=== PATIENT | female | born 1965 | race Caucasian/White ===

== ENCOUNTER 2019-08-20 14:04 | Emergency (ER) | payer OTHER ==
[~2019-08-20] VITALS: Ht 157.5 cm; Wt 107.0 kg
[2019-08-20] MEDS ORDERED: CIPROFLOXACIN 500 MG TAB ONE (15:08)
[2019-08-20] MEDS: CIPROFLOXACIN 500 MG TAB PO SCH (15:24)
== END 2019-08-20 18:01 | disposition home or self-care (01) ==
LOC: FSED 14:04
DX: Z20.811 Contact with and (suspected) exposure to meningococcus (principal); I10 Essential (primary) hypertension; F17.210 Nicotine dependence, cigarettes, uncomplicated
CPT/HCPCS: 99282

== ENCOUNTER 2020-08-21 10:41 | Emergency (ER) | payer BC ==
[~2020-08-21] VITALS: Ht 157.5 cm; Wt 107.0 kg
[2020-08-21] MEDS ORDERED: KETOROLAC TROMETHAMINE 30 MG/ML VIAL IV STA (11:22)
[2020-08-21 12:10] LABS: BASOPHILS # (AUTO) 0.1 (0.0-0.1); BASOPHILS % 0.7 % (0.0-1.0); EOSINOPHILS # (AUTO) 0.3 (0.0-0.4); EOSINOPHILS % 2.9 % (0.0-6.0); HEMATOCRIT 43.7 % (34.2-44.1); HEMOGLOBIN 14.5 g/dL (12.0-16.0); LYMPHOCYTES # (AUTO) 2.6 (1.0-3.2); LYMPHOCYTES % 21.4 % (18.0-39.1); MEAN CORPUSCULAR HEMOGLOBIN 32.3 pg (28-32); MEAN CORPUSCULAR HGB CONC 33.2 g/dL (31-35); MEAN CORPUSCULAR VOLUME 97.3 fL (81-99); MONOCYTES # (AUTO) 0.8 (0.2-0.8); MONOCYTES % 6.6 % (4.4-11.3); NEUTROPHILS # (AUTO) 8.1 (2.1-6.9); NEUTROPHILS % 68.1 % (38.7-80.0); PLATELET COUNT 273 x10e3/uL (140-360); RED BLOOD COUNT 4.49 x10e6/uL (3.6-5.1); RED CELL DISTRIBUTION WIDTH 12.8 % (11.7-14.4)
[2020-08-21] MEDS ORDERED: DEXAMETHASONE SOD PHOS 10 MG/1 ML VIAL IV ONE (12:15)
[2020-08-21 12:21] LABS: INR 0.92; PROTHROMBIN TIME 12.8 seconds (11.9-14.5)
[2020-08-21 12:22] LABS: PARTIAL THROMBOPLASTIN TIME 28.9 seconds (23.8-35.5)
[2020-08-21 12:28] LABS: ALANINE AMINOTRANSFERASE 20 IU/L (0-55); ALBUMIN 4.5 g/dL (3.5-5.0); ALBUMIN/GLOBULIN RATIO 1.7 (0.8-2.0); ALKALINE PHOSPHATASE 69 IU/L (40-150); ANION GAP 13.2 mmol/L (8-16); BLOOD UREA NITROGEN 9 mg/dL (7-26); BUN/CREATININE RATIO 11 (6-25); CALCIUM 8.9 mg/dL (8.4-10.2); CARBON DIOXIDE 25 mmol/L (22-29); CHLORIDE 107 mmol/L (98-107); CREATININE, SERUM 0.79 mg/dL (0.57-1.11); EST GLOMERULAR FILTRATION RATE > 60 ML/MIN (60-); GLUCOSE 95 mg/dL (74-118); POTASSIUM 4.2 mmol/L (3.5-5.1); SODIUM 141 mmol/L (136-145)
--- NOTE | 2020-08-21 12:37 | Diagnostic Imaging Report ---
Radiographs of the right knee - 3 views HISTORY: Pain COMPARISON: None available. FINDINGS: Bones: No acute displaced fracture. Osseous alignment is within normal limits. 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 No osseous erosion. Soft tissues: The soft tissues appear unremarkable. 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 No osseous erosion. Signed by: Dr. Jose Armando Li M.D. on 08/21/2020 12:34 PM
[2020-08-21] MEDS ORDERED: DEXAMETHASONE SOD PHOS INJ 4 MG/ML VIAL IV ONE (12:45)
--- NOTE | 2020-08-21 13:38 | Emergency Department Note ---
History of Present Illnes History of Present Illness Chief Complaint: General Medicine Complaints History of Present Illness This is a 54 year old female PATIENT IN FROM HOME WITH COMPLAINTS OF RIGHT KNEE PAIN SINCE MONDAY; PATIENT WITH PAIN TO THE INSIDE OF THE RIGHT KNEE; RATED 4/10. STATES PAIN IS WORSE WITH PRESSURE. PATIENT AMBULATORY WITH SLOW AND STEADY GAIT; APPEARS UNCOMFORTABLE. Historian: Patient Arrival Mode: [employer] Employee Required: No Onset (how long ago): day(s) (2) Location: R KNEE Quality: PAIN Radiation: Reports non-radiation Severity: severe Onset quality: sudden Timing of current episode: constant Progression: unchanged Chronicity: new Context: Denies recent illness, Denies trauma/injury Relieving factors: none Exacerbating factors: none Associated symptoms: Reports denies other symptoms Past Medical/Family History Physician Review I have reviewed the patient's past medical and family history. Any updates have been documented here. Past Medical History Recent Fever: No Clinical Suspicion of Infectio: No New/Unexplained Change in Ment: No Past Medical History: Hypertension, Hyperlipedemia Past Surgical History: Tubal Ligation, Social History Smoking Cessation: Never Smoker Counseling Performed: No Alcohol Use: None Any Illegal Drug Use: No TB Exposure/Symptoms: No Physically hurt or threatened: No Family History Family history of heart diseas: No Other Last Tetanus: utd Any Pre-Existing Lines (PICC,: No Review of Systems Review of Systems Constitutional: Reports no symptoms EENTM: Reports no symptoms Cardiovascular: Reports no symptoms Respiratory: Reports no symptoms Gastrointestinal: Reports no symptoms Genitourinary: Reports no symptoms Musculoskeletal: Reports as per HPI Integumentary: Reports no symptoms Neurological: Reports no symptoms Psychological: Reports no symptoms Endocrine: Reports no symptoms Hematological/Lymphatic: Reports no symptoms Physical Exam Related Data Allergies: Coded Allergies: No Known Allergies (Unverified , 08/20/19) Triage Vital Signs Vital Signs Date Time Temp Pulse Resp B/P (MAP) Pulse Ox O2 Delivery O2 Flow Rate FiO2 08/21/20 11:19 97.4 73 20 117/81 100 Room Air Vital signs reviewed: Yes Physical Exam CONSTITUTIONAL Constitutional: Present well-developed, Present well-nourished, Present obese HENT HENT: Present normocephalic, Present atraumatic, Present oropharynx clear/moist, Present nose normal HENT L/R: Present left ext ear normal, Present right ext ear normal EYES Eyes: Reports PERRL, Reports conjunctivae normal NECK Neck: Present ROM normal PULMONARY Pulmonary: Present effort normal, Present breath sounds normal CARDIOVASCULAR Cardiovascular: Present regular rhythm, Present heart sounds normal, Present capillary refill normal, Present normal rate GASTROINTESTINAL Abdominal: Present soft, Present nontender, Present bowel sounds normal GENITOURINARY Genitourinary: Present exam deferred SKIN Skin: Present warm, Present dry MUSCULOSKELETAL Musculoskeletal: Present ROM normal, Present tenderness (MEDIAL RIGHT KNEE) NEUROLOGICAL Neurological: Present alert, Present oriented x 3, Present no gross motor or sensory deficits PSYCHOLOGICAL Psychological: Present mood/affect normal, Present judgement normal Results Laboratory Result Diagram: 08/21/20 1152 08/21/20 1152 Laboratory Laboratory Tests Test 08/21/20 11:52 White Blood Count 11.91 x10e3/uL (4.8-10.8) Red Blood Count 4.49 x10e6/uL (3.6-5.1) Hemoglobin 14.5 g/dL (12.0-16.0) Hematocrit 43.7 % (34.2-44.1) Mean Corpuscular Volume 97.3 fL (81-99) Mean Corpuscular Hemoglobin 32.3 pg (28-32) Mean Corpuscular Hemoglobin Concent 33.2 g/dL (31-35) Red Cell Distribution Width 12.8 % (11.7-14.4) Platelet Count 273 x10e3/uL (140-360) Neutrophils (%) (Auto) 68.1 % (38.7-80.0) Lymphocytes (%) (Auto) 21.4 % (18.0-39.1) Monocytes (%) (Auto) 6.6 % (4.4-11.3) Eosinophils (%) (Auto) 2.9 % (0.0-6.0) Basophils (%) (Auto) 0.7 % (0.0-1.0) Neutrophils # (Auto) 8.1 (2.1-6.9) Lymphocytes # (Auto) 2.6 (1.0-3.2) Monocytes # (Auto) 0.8 (0.2-0.8) Eosinophils # (Auto) 0.3 (0.0-0.4) Basophils # (Auto) 0.1 (0.0-0.1) Absolute Immature Granulocyte (auto 0.04 x10e3/uL (0-0.1) Prothrombin Time 12.8 seconds (11.9-14.5) Prothromb Time International Ratio 0.92 Activated Partial Thromboplast Time 28.9 seconds (23.8-35.5) Sodium Level 141 mmol/L (136-145) Potassium Level 4.2 mmol/L (3.5-5.1) Chloride Level 107 mmol/L (98-107) Carbon Dioxide Level 25 mmol/L (22-29) Anion Gap 13.2 mmol/L (8-16) Blood Urea Nitrogen 9 mg/dL (7-26) Creatinine 0.79 mg/dL (0.57-1.11) Estimat Glomerular Filtration Rate > 60 ML/MIN (60-) BUN/Creatinine Ratio 11 (6-25) Glucose Level 95 mg/dL (74-118) Calcium Level 8.9 mg/dL (8.4-10.2) Total Bilirubin 0.3 mg/dL (0.2-1.2) Aspartate Amino Transf (AST/SGOT) 15 IU/L (5-34) Alanine Aminotransferase (ALT/SGPT) 20 IU/L (0-55) Alkaline Phosphatase 69 IU/L (40-150) Total Protein 7.2 g/dL (6.5-8.1) Albumin 4.5 g/dL (3.5-5.0) Globulin 2.7 g/dL (2.3-3.5) Albumin/Globulin Ratio 1.7 (0.8-2.0) Imaging Imaging results reviewed: Yes Imaging Comments NEG VENOUS DOPPLER/NO DVT Assessment & Plan Medical Decision Making MDM KNEE PAIN - CHECK XRAY, VENOUS DOPPLER - EVAL FX, DVT Reassessment Reassessment TORADOL, TYL #3, KNEE BRACE, F/U PCP (GIVE # FOR DR QUINTERO) AND ORTHO DR Mariangel YEBOAH Assessment & Plan Final Impression: (1) Knee internal derangement Depart Disposition: HOME, SELF-CARE Last Vital Signs Date Time Temp Pulse Resp B/P (MAP) Pulse Ox O2 Delivery O2 Flow Rate FiO2 08/21/20 11:19 97.4 73 20 117/81 100 Room Air Medications in the ED Ketorolac Tromethamine 30 mg ONCE STAT IV Last administered on 08/21/20at 12:23; Admin Dose 30 MG; Start 08/21/20 at 11:22; Stop 08/21/20 at 11:26; Status DC Dexamethasone Sodium Phosphate 6 mg ONCE ONCE IV ; Start 08/21/20 at 12:15; Stop 08/21/20 at 12:16; Status DC Dexamethasone Sodium Phosphate 6 mg ONCE ONCE IV Last administered on 08/21/20at 12:41; Admin Dose 6 MG; Start 08/21/20 at 12:45; Stop 08/21/20 at 12:46; Status DC JOSÉ ABREU MD Aug 21, 2020 13:38
[2020-08-21 13:41] VITALS: BP 135/81
--- OUTSIDE RECORDS SUMMARY | 2020-08-23 16:11 | XMS REPORT | Continuity of Care Document ---
Author Author [facility] t Organization [facility] Address [address] [place] [address] Phone Unavailable Care Team Providers Care Tire Mold Tester Name Role Phone NO, PCP PCP Unavailable Shiv ABREU Attphys Unavailable Payers Payer Name Policy Type Policy Number Effective Date Expiration Date [facility] Ppo [id number] 2019 00:00:00 [facility] Problems Condition Name Condition Details Condition Category Status Onset Date Resolution Date Last Treatment Date Treating Clinician Comments Source Internal derangement of knee Problem Active [facility] HTN (hypertension), benign HTN (hypertension), benign Active Diagnosis 04/30/2020 [facility] Cardiovascular Diagnosis Active 2020-04-30 02:45:14 Say Concepcion Obesity (BMI 30-39.9) Obes ity (BMI 30-39.9) Active Diagnosis 04/30/2020 [facility] Cardiovascular Diagnosis Active 2020-04-30 02:45:14 Say Concepcion Dyslipidemia Dysl ipidemia Active Diagnosis 04/30/2020 [facility] Cardiovascular Diagnosis Active 2020-04-30 02:45:14 Say Concepcion Family history of premature CAD Family history of premature CAD Active Diagnosis 04/23/2020 [facility] Cardiovascular Diagnosis Active 2020-04-23 02:45:56 Say Concepcion KO (dyspnea on exertion) KO (dyspnea on exertion) Active Diagnosis 04/30/2020 [facility] Cardiovascular Diagnosis Active 2020-04-30 02:45:14 Say Concepcion 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 Active Diagnosis 04/23/2020 [facility] Cardiovascular Diagnosis Active 2020-04-23 02:45:56 [facility] Carotid stenosis, left Luo tid stenosis, left Active Diagnosis 04/30/2020 [facility] Cardiovascular Diagnosis Active 2020-04-30 02:45:14 [facility] Other symptoms involving cardiovascular system Other symptoms involving cardiovascular system Active Diagnosis 04/23/2020 [facility] Cardiovascular Diagnosis Active 2020-04-23 02:45:56 Ar morial [facility] Allergies, Adverse Reactions, Alerts Allergy Name Allergy Type Status Severity Reaction(s) Onset Date Inacti ve Date Treating Clinician Comments Source Geovanna Austin Active Info Not Available 2020-04-28 00:00:00 [facility] Social History Social Habit Start Date Stop Date Quantity Comments Source Sex Assigned At 1965 00:00:00 1965 00:00:00 Female [facility] Medications Ordered Medication Name Filled Medication Name Start Date Stop Da te Current Medication? Ordering Clinician Indication Dosage Frequency Signature (SIG) Comments Components Source Lisinopril 2020-04-30 02:45:14 Yes Mohamed Ramo 1 tablet [facility] Phentermine HCl 2020-04-30 02:45:14 Yes Mohamed Ramo 1 capsule [facility] Aspirin 81 2020-04-28 00:00:00 Yes Mohamed Ramo 1 tablet [facility] Pravastatin Sodium 2019-07-02 00:00:00 Yes Mohamed Ramo 1 tablet [facility] Lisinopril 2019-07-02 00:00:00 Yes Mohamed Ramo 1 tablet [facility] Phentermine HCl 2018-12-21 00:00:00 Yes Lorenamed Ramo 1 capsule [facility] Vital Signs Vital Name Observation Time Observation Value Comments Source Weight 2020-08-21 11:19:00 236 [lb_av] [facility] BMI (Body Mass Index) 2020-08-21 11:19:00 43.2 kg/m2 [facility] Weight 2019-10-15 18:45:00 [facility] Height 2019-10-15 18:45:00 [facility] Heart Rate 2019-10-15 18:45:00 [facility] Diastolic (mm Hg) 2019-10-15 18:45:00 [facility] Systolic (mm Hg) 2019-10-15 18:45:00 [facility] Weight 2018-12-21 16:15:00 [facility] Height 2018-12-21 16:15:00 [facility] Heart Rate 2018-12-21 16:15:00 [facility] Diastolic (mm Hg) 2018-12-21 16:15:00 [facility] Systolic (mm Hg) 2018-12-21 16:15:00 [facility] Weight 2018-12-04 21:00:00 [facility] Height 2018-12-04 21:00:00 [facility] Heart Rate 2018-12-04 21:00:00 [facility] Diastolic (mm Hg) 2018-12-04 21:00:00 [facility] Systolic (mm Hg) 2018-12-04 21:00:00 [facility] Procedures This patient has no known procedures. Plan of Care Planned Activity Planned Date Details Comments Source Instructions Strains [facility] Instructions Sprains- Knee [facility] Encounters Start Date/Time End Date/Time [facility] Source 2020-04-28 09:45:00 2020-04-28 09:45:00 [place] [id number] [facility] 2020-04-16 11:00:00 2020-04-16 11:00:00 [place] [id number] [facility] 2020-04-16 11:00:00 2020-04-16 11:00:00 [place] [id number] [facility] 2019-11-04 13:17:00 2019-11-04 13:17:00 [place] [id number] [facility] 2019-10-15 13:45:00 2019-10-15 13:45:00 Out[place] [id number] [facility] 2019-10-02 10:00:00 2019-10-02 10:00:00 Outpatient [place] [id number] [facility] 2019-08-20 14:04:00 2019-08-20 14:04:00 Registered Emergency Room [facility] [id number] [facility] 2019-06-20 10:00:00 2019-06-20 10:00:00 Outpatient [place] [id number] [employer] 2018-12-21 10:15:00 2018-12-21 10:15:00 [place] [id number] [facility] 2018-12-12 09:30:00 2018-12-12 09:30:00 [place] [facility] [place] [id number] [facility] 2018-12-12 09:00:00 2018-12-12 09:00:00 Outpatient [facility] [place] [id number] [facility] 2018-12-12 09:00:00 2018-12-12 09:00:00 Outpatient [facility] [place] [id number] [facility] 2018-12-12 08:30:00 2018-12-12 08:30:00 Outpatient [facility] [place] [id number] [facility] 2018-12-04 15:00:00 2018-12-04 15:00:00 [place] [id number] [employer] Results Test Description Test Time Test Comments Results Result Comments Source KNEE RIGHT THREE VIEWS 2020-08-21 12:33:00 [facility] [address] [place] [address] Patient Name: TEE THEODORE MR #: [id number] : 1965 Age/Sex: 54/F Req #: [id number] Adm Physician: Ordered by: JOSÉ ABREU MD Report #: [id number] Location: ER Room/Bed: Procedure: [id number] DX/KNEE RIGHT THREE VIEWS Exam Date: 08/21/20 Exam Time: 1222 REPORT STATUS: Signed Radiographs of the right knee - 3 views HISTORY: Pain COMPARISON: None available. FINDINGS: Bones: No acute displaced fracture. Osseous alignment is within normal limits. 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 No osseous erosion. Soft tissues: The soft tissues appear unremarkable. 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 No osseous erosion. Signed by: Dr. Jose Armando Li M.D. on 08/21/2020 12:34 PM Dictated By: JOSE ARMANDO LI MD, MD 1234 Transcribed By: DEREK on 08/21/20 1234 COPY TO: JOSÉ ABREU MD Blood leukocytes automated count (number/volume) 2020-08-21 11:52:00 Test Item White Blood Count (test code = 6690-2) 11.91 4.8-10.8 [facility] count (number/volume)2020-08-21 11:52:00* Test Item Value Reference Range Interpretation Comments Red Blood Count (test code = 789-8) 4.49 3.6-5.1 [facility] hemoglobin measurement (moles/volume)2020-08-21 11:52:00* Test Item Value Reference Range Interpretation Comments Hemoglobin (test code = 84776-8) 14.5 12.0-16.0 [facility] CenterAutomated blood hematocrit (volume fraction)2020-08-21 11:52:00* Test Item Value Reference Range Interpretation Comments Hematocrit (test code = 4544-3) 43.7 34.2-44.1 [facility] CenterAutomated erythrocyte mean corpuscular dtyism9179-00-66 11:52:00* Test Item Value Reference Range Interpretation Comments Mean Corpuscular Volume (test code = 787-2) 97.3 81-99 [facility] CenterAutomated erythrocyte mean corpuscular hemoglobin (mass per erythrocyte)2020-08-21 11:52:00* Test Item Value Reference Range Interpretation Comments Mean Corpuscular Hemoglobin (test code = 785-6) 32.3 28-32 [facility] CenterAutomated erythrocyte mean corpuscular hemoglobin concentration measurement (mass/volume)2020-08-21 11:52:00* Test Item Value Reference Range Interpretation Comments Mean Corpuscular Hemoglobin Concent (test code = 786-4) 33.2 31-35 [facility] CenterRDW WxkGb-Ddr0243-77-25 11:52:00* Test Item Value Reference Range Interpretation Comments Red Cell Distribution Width (test code = 76733-6) 12.8 11.7 -14.4 [facility] CenterAutomated blood platelet count (count/volume)2020-08-21 11:52:00* Test Item Value Reference Range Interpretation Comments Platelet Count (test code = 777-3) 273 140-360 [facility] CenterAutunc health johnstoned blood segmented neutrophil count as percentage of total aegjxmtmly8978-49-76 11:52:00* Test Item Value Reference Range Interpretation Comments Neutrophils (%) (Auto) (test code = 16144-0) 68.1 38.7-80.0 [facility] CenterAutomated blood lymphocyte count as percentage ot total dtvbmqalqq6041-37-04 11:52:00* Test Item Value Reference Range Interpretation Comments Lymphocytes (%) (Auto) (test code = 736-9) 21.4 18.0-39.1 [facility] CenterAutunc health johnstoned blood monocyte count as percentage of total isyypzfjzp6678-77-60 11:52:00* Test Item Value Reference Range Interpretation Comments Monocytes (%) (Auto) (test code = 5905-5) 6.6 4.4-11.3 [facility] CenterAutomated blood eosinophil count as percentage of total loewiuxfea5935-07-28 11:52:00* Test Item Value Reference Range Interpretation Comments Eosinophils (%) (Auto) (test code = 713-8) 2.9 0.0-6.0 [facility] CenterAutomated blood basophil count as percentage of total jjccmyckhm3593-28-55 11:52:00* Test Item Value Reference Range Interpretation Comments Basophils (%) (Auto) (test code = 706-2) 0.7 0.0-1.0 [facility] CenterFluoroscopic procedure less than one hour svlgbfdw8068-27-95 11:52:00* Test Item Value Reference Range Interpretation Comments IM GRANULOCYTES % (test code = IM GRANULOCYTES %) 0.3 0.0- 1.0 [facility] neutrophil count 2020-08-21 11:52:00* Test Item Value Reference Range Interpretation Comments Neutrophils # (Auto) (test code = 751-8) 8.1 2.1-6.9 [facility] CenterBlood lymphocytes count (number/volume) 2020-08-21 11:52:00* Test Item Value Reference Range Interpretation Comments Lymphocytes # (Auto) (test code = 01434-8) 2.6 1.0-3.2 [facility] monocytes automated count (number/volume)2020-08-21 11:52:00* Test Item Value Reference Range Interpretation Comments Monocytes # (Auto) (test code = 742-7) 0.8 0.2-0.8 [facility] CenterAutomated blood eosinophil count 2020-08-21 11:52:00* Test Item Value Reference Range Interpretation Comments Eosinophils # (Auto) (test code = 711-2) 0.3 0.0-0.4 [facility] CenterAutomated blood basophil count (count/volume)2020-08-21 11:52:00* Test Item Value Reference Range Interpretation Comments Basophils # (Auto) (test code = 704-7) 0.1 0.0-0.1 [facility] CenterFluoroscopic procedure less than one hour wpwfowoe1611-42-36 11:52:00* Test Item Value Reference Range Interpretation Comments Absolute Immature Granulocyte (auto (teodoro t code = Absolute Immature Granulocyte (auto) 0.04 0-0.1 [facility] CenterProthrombin time (PT) in platelet poor plasma by coagulation embug7475-61-70 11:52:00* Test Item Value Reference Range Interpretation Comments Prothrombin Time (test code = 5902-2) 12.8 11.9-14.5 [facility] CenterINR in Platelet poor plasma by Coagulation cuquj5548-59-42 11:52:00* Test Item Value Reference Range Interpretation Comments Prothromb Time International Ratio (test code = 6301-6) 0.92 Oral Anticoagulant Therapy INR Values:1. Low Intensity Therapy 1.5 - 2.02 . Moderate Intensity Therapy 2.0 - 3.03. High Intensity Therapy(1) 2.5 - 3. 54. High Intensity Therapy(2) 3.0 - 4.05. Panic Value INR > 5.0 [facility] CenterActivated partial thromboplastin time (aPTT) in platelet poor plasma by coagulation lvwux2890-75-84 11:52:00* Test Item Value Reference Range Interpretation Comments Activated Partial Thromboplast Time (test code = 56585-1) 28.9 23.8-35.5 [facility] plasma sodium measurement (moles/volume)2020-08-21 11:52:00* Test Item Value Reference Range Interpretation Comments Sodium Level (test code = 2951-2) 141 136-145 [facility]erum or plasma potassium measurement (moles/volume)2020-08-21 11:52:00* Test Item Value Reference Range Interpretation Comments Potassium Level (test code = 2823-3) 4.2 3.5-5.1 [facility]um or plasma chloride measurement (moles/volume)2020-08-21 11:52:00* Test Item Value Reference Range Interpretation Comments Chloride Level (test code = 2075-0) 107 98-107 [facility] Texaserum or plasma carbon dioxide, total measurement (moles/volume)2020-08-21 11:52:00* Test Item Value Reference Range Interpretation Comments Carbon Dioxide Level (test code = 2028-9) 25 22-29 [facility] Texaserum or plasma anion ftp7364-90-95 11:52:00* Test Item Value Reference Range Interpretation Comments Anion Gap (test code = 55388-6) 13.2 8-16 [facility]um or plasma urea nitrogen measurement (mass/volume)2020-08-21 11:52:00* Test Item Value Reference Range Interpretation Comments Blood Urea Nitrogen (test code = 3094-0) 9 7- [facility]erum or plasma creatinine measurement (mass/volume)2020-08-21 11:52:00* Test Item Value Reference Range Interpretation Comments Creatinine (test code = 2160-0) 0.79 0.57-1.11 [facility]erum or plasma urea nitrogen/creatinine mass bpvhq3105-84-93 11:52:00* Test Item Value Reference Range Interpretation Comments BUN/Creatinine Ratio (test code = 3097-3) 11 - [facility] CenterEstimated glomerular filtration rate (GFR) gzdreqcjqhegq3308-75-20 11:52:00* Test Item Value Reference Range Interpretation Comments Estimat Glomerular Filtration Rate (test code = 207190304) > 60 >60 Ranges were taken from the National Kidney Disease Education Program and the [facility] Kid[facility] Foundation literature.Reference ranges:60 or greater: Cocacu13-25 ( for 3 consecutive months): Chronic kidney disease 15 or less: Kidney failureMethodist Mansfield Medical CenterGlucose xfcplagqmnu9194-05-63 11:52:00* Test Item Value Reference Range Interpretation Comments Glucose Level (test code = HTK3048) 95 74-118 [facility]erum or plasma calcium measurement (mass/volume)2020-08-21 11:52:00* Test Item Value Reference Range Interpretation Comments Calcium Level (test code = 57828-2) 8.9 8.4-10.2 [facility]erum or plasma total bilirubin measurement (mass/volume)2020-08-21 11:52:00* Test Item Value Reference Range Interpretation Comments Total Bilirubin (test code = 1975-2) 0.3 0.2-1.2 [facility] CenterFluoroscopic procedure less than one hour mavgpwpz1347-44-99 11:52:00* Test Item Value Reference Range Interpretation Comments Aspartate Amino Transf (AST/SGOT) (test code = Aspartate Amino Transf (AST/SGOT)) 15 5-34 [facility] Texaserum or plasma alanine aminotransferase measurement (enzymatic activity/volume)2020-08-21 11:52:00* Test Item Value Reference Range Interpretation Comments Alanine Aminotransferase (ALT/SGPT) (test code = 1742-6) 20 0-55 [facility]erum or plasma protein measurement (mass/volume)2020-08-21 11:52:00* Test Item Value Reference Range Interpretation Comments Total Protein (test code = 2885-2) 7.2 6.5-8.1 [facility] Texaserum or plasma albumin measurement (mass/volume)2020-08-21 11:52:00* Test Item Value Reference Range Interpretation Comments Albumin (test code = 1751-7) 4.5 3.5-5.0 [facility] CenterPlasma globulin measurement (mass/volume) 2020-08-21 11:52:00* Test Item Value Reference Range Interpretation Comments Globulin (test code = 54418-0) 2.7 2.3-3.5 [facility]um or plasma albumin/globulin mass [id number] 11:52:00* Test Item Value Reference Range Interpretation Comments Albumin/Globulin Ratio (test code = 1759-0) 1.7 0.8-2.0 [facility]erum or plasma alkaline phosphatase measurement (enzymatic activity/volume)2020-08-21 11:52:00* Test Item Value Reference Range Interpretation Comments Alkaline Phosphatase (test code = 6768-6) 69 40-150 [facility]
--- OUTSIDE RECORDS SUMMARY | 2020-08-23 16:11 | XMS REPORT | Continuity of Care Document ---
Author Author [employer] Luis AdEspresso Address Unknown Phone Unavailable Care Team Providers Care Maritime Officer Name Role Phone Palmer Hargreaves Information Exchange Unavailable Un available Problems Problem Status Onset Date Classification Date Reported Comments Source HTN (hypertension), benign Act eve Diagnosis 0 04/30/2020 [facility] Obesity (BMI 30-39.9) Active Diagnosis 04/30/2020 [facility] Dyslipidemia Active Diagnosis 04/30/2020 [facility] Family history of premature CAD Active Diagnosis 0 04/23/2020 [facility] KO (dyspnea on exertion) Acti ve Diagnosis 0 04/30/2020 [facility] Tobacco abuse Active Diagnosis 04/23/2020 [facility] Carotid stenosis, left Active Diagnosis 04/30/2020 [facility] Other symptoms involving cardiovascular system Active Diagnosis 04/23/2020 [facility] Medications Medication Details Route Status Patient Instructions Ordering Provider Order Date Source Aspirin 81 1 tablet Orally Active 81 MG Orally Once a day [facility] 04/28/2020 [facility] Pravastatin Sodium 1 tablet Orally Active 40 mg Orally Once a day [facility] 07/02/2019 [facility] Lisinopril 1 tablet Orally Active 20 mg Orally Once a day [facility] 07/02/2019 [facility] Phentermine HCl 1 capsule Orally Active 37.5 MG Orally Once a d [facility] 12/21/2018 [facility] Lisinopril 1 tablet Orally Active 5 MG Orally Once a day [facility] Phentermine HCl 1 capsule Orally Active 37.5 MG Orally Once a d [facility] Allergies, Adverse Reactions, Alerts Substance Category Reaction Severity Reaction type Status Date Reported Comments Source N.K.D.A. Adverse Reaction Info Not Available Adverse Reaction 04/28/2020 [facility] Immunizations No Data Provided for This Section Results No Data Provided for This Section Pathology Reports No Data Provided for This Section Diagnostic Reports No Data Provided for This Section Consultation Notes No Data Provided for This Section Discharge Summaries No Data Provided for This Section History and Physicals No Data Provided for This Section Vital Signs Vital Sign Value Date Comments Source Weight 238 10/15/2019 [facility] Height 62 1 12/15/2018 [facility] Heart Rate 64 10/15/2019 [facility] Diastolic (mm Hg) 70 10/15/2019 [facility] Systolic (mm Hg) 110 10/15/2019 [facility] Weight 232 12/21/2018 [facility] Height 62 0 12/21/2018 [facility] Heart Rate 64 12/21/2018 [facility] Diastolic (mm Hg) 71 12/21/2018 [facility] Systolic (mm Hg) 121 12/21/2018 [facility] Weight 238 12/04/2018 [facility] Height 62 0 12/04/2018 [facility] Heart Rate 80 12/04/2018 [facility] Diastolic (mm Hg) 86 12/04/2018 [facility] Systolic (mm Hg) 134 12/04/2018 [facility] Encounters No Data Provided for This Section Procedures No Data Provided for This Section Assessment and Plan No Data Provided for This Section Plan of Care No Data Provided for This Section Social History No Data Provided for This Section Family History No Data Provided for This Section Advance Directives No Data Provided for This Section Functional Status No Data Provided for This Section
== END 2020-08-21 14:10 | disposition home or self-care (01) ==
LOC: ER 11:30
DX: M25.561 Pain in right knee (principal); M23.91 Unspecified internal derangement of right knee; I10 Essential (primary) hypertension; E78.5 Hyperlipidemia, unspecified
CPT/HCPCS: 29530; 36415; 73562; 80053; 85025; 85610; 85730; 93971; 99283; J1100; J1885

== ENCOUNTER → 2020-11-26 | Outpatient (CLI) | payer OTHER ==
[~2020-11-26] MED LIST: COVID-19 VACC, MRNA(MODERNA)/PF 100 MCG/0.5 ML VIAL IM ONE
== END ==
LOC: VACCPMC 17:00
DX: Z23 Encounter for immunization (principal); Z20.828 Contact with and (suspected) exposure to other viral communicable diseases

== ENCOUNTER → 2020-12-30 | Outpatient (CLI) | payer OTHER | END | DRG 951 | LOC: VACCPMC 10:43 | DX: Z23 Encounter for immunization (principal); Z20.822 Contact with and (suspected) exposure to COVID-19 | CPT/HCPCS: 0012A; 91301 ==